=== PATIENT | female | born 1995 | race Caucasian/White ===

== ENCOUNTER 2021-11-24 11:51 | Emergency (ER) | payer MEDICAID ==
[~2021-11-24] VITALS: Ht 154.9 cm; Wt 61.2 kg
--- NOTE | 2021-11-24 12:03 | NUR ---
TO ER BED 16, BIBS C/O LWR ABD PAIN/CRAMP LAST NIGHT, SPOTTING 11/22, HEAVY BLEED THIS AM, AAOX3, BREATHING EVEN AND NON LABORED, AWAITING MD LA
[2021-11-24] MEDS ORDERED: ONDANSETRON HCL/PF 4 MG/2 ML VIAL ONE (12:14)
[2021-11-24] MEDS ORDERED: MORPHINE SULFATE INJ 2 MG/ML DISP.SYRIN ONE (12:15)
[2021-11-24] MEDS ORDERED: MORPHINE SULFATE INJ 2 MG/ML DISP.SYRIN IV ONE (12:30)
[2021-11-24] MEDS ORDERED: IV NS 0.9% 500 ML BAG IV ONE (12:30)
[2021-11-24] MEDS ORDERED: ONDANSETRON HCL/PF 4 MG/2 ML VIAL IVP ONE (12:30)
[2021-11-24 12:40] LABS: BASOPHILS % (AUTO) 0.5 % (0.0-2.0); EOSINOPHILS % (AUTO) 2.3 % (0.0-6.0); HEMATOCRIT 40 % (33-45); HEMOGLOBIN 13.8 g/dL (11.5-14.8); LYMPHOCYTES # (AUTO) 1.7 K/uL (0.8-4.8); LYMPHOCYTES % (AUTO) 21.9 % (20.0-44.0); MEAN CORPUSCULAR HGB CONC 34 g/dl (31.0-36.0); MEAN CORPUSCULAR VOLUME 90 fL (82-100); MONOCYTES # (AUTO) 0.5 K/uL (0.1-1.30); MONOCYTES % (AUTO) 6.8 % (2.0-12.0); NEUTROPHILS # (AUTO) 5.2 K/uL (1.8-8.9); NEUTROPHILS % (AUTO) 68.5 % (43.0-81.0); PLATELET COUNT (AUTO) 349 K/uL (150-450); RED BLOOD CELL COUNT(AUTO) 4.47 MIL/uL (4.0-5.2); WHITE BLOOD COUNT (AUTO) 7.6 K/uL (4.3-11.0)
[2021-11-24 12:51] LABS: CALCIUM, SERUM 8.7 mg/dL (8.5-10.1); CREATININE 0.6 mg/dL (0.6-1.3); POTASSIUM 3.8 mmol/L (3.5-5.1)
--- NOTE | 2021-11-24 12:51 | NUR ---
US AT BEDSIDE
[2021-11-24 13:22] VITALS: BP 118/60
--- NOTE | 2021-11-24 13:22 | NUR ---
IV removed. Catheter intact and site benign. Pressure and 4x4 applied to site. No bleeding noted.Patient discharged to home in stable condition. Written and verbal after care instructions given. Patient verbalizes understanding of instruction.
== END 2021-11-24 13:23 | disposition home or self-care (01) ==
LOC: ER 12:00
DX: O46.91 Antepartum hemorrhage, unspecified, first trimester (principal); Z3A.01 Less than 8 weeks gestation of pregnancy
CPT/HCPCS: 36415; 76805; 80048; 84702; 85025; 96374; 96375; 99284; J2270; J2405; J7040

== ENCOUNTER 2021-11-26 12:34 | Emergency (ER) | payer MEDICAID, OTHER ==
[~2021-11-26] VITALS: Ht 154.9 cm; Wt 61.2 kg
--- NOTE | 2021-11-26 13:16 | NUR ---
VAGILNAL BLEED. PASSED A "CLOT" LAST NIGHT. SEEN LAST WEDNESDAY FOR POSSIBLE MISCARRIAGE, EARLY . DENIES PAIN. IN ROOM AIR AND DENIES SOB. RESPIRATION REGULAR AND UNLABORED. WILL CONTINUE TO MONITOR THE PATIENT.
--- NOTE | 2021-11-26 14:10 | NUR ---
ULTRASOUND AT BEDSIDE
--- NOTE | 2021-11-26 15:40 | NUR ---
Patient discharged to home in stable condition. Written and verbal after care instructions given. Patient verbalizes understanding of instruction.
[2021-11-26 15:42] VITALS: BP 117/71
== END 2021-11-26 15:44 | disposition home or self-care (01) ==
LOC: ER 12:35
DX: O03.6 Delayed or excessive hemorrhage following complete or unspecified spontaneous abortion (principal)
CPT/HCPCS: 36415; 76805-TC; 84702-TC